=== PATIENT | male | born 1980 | race Caucasian/White ===

== ENCOUNTER 2018-04-01 02:04 | Emergency (ER) | payer SELFPAY ==
--- NOTE | 2018-04-01 02:42 | ER ---
Nurse's Notes [facility] Name: Stepan Bowman Age: 37 yrs Sex: Male : 1980 Arrival Date: 04/01/2018 Time: 02:08 Bed 20 Private MD: Diagnosis: Abrasion of foot;Cellulitis and acute lymphangitis of other parts of limb Presentation: 04/01 02:27 Presenting complaint: Patient states: "I think [place] may have [place] shellfish this morning.". Transition of care: patient was not received from another setting of care. Onset of symptoms was March 31, 2018. Risk Assessment: Do you want to hurt yourself or someone else? Patient reports no desire to harm self or others. Initial Sepsis Screen: Does the patient meet any 2 criteria? HR > 90 bpm. No. Patient's initial sepsis screen is negative. Does the patient have a suspected source of infection? No. Patient's initial sepsis screen is negative. Care prior to arrival: None. 02:27 Method Of Arrival: Ambulatory j 02:27 Acuity: TERENCE 4 jd3 Historical: - Allergies: 02:31 No Known Allergies; jd3 - Home Meds: 02:31 None [Active]; jd3 - PMHx: 02:31 endocarditis; jd3 - PSHx: 02:31 None; jd3 - Immunization history:: Adult Immunizations up to date. - Social history:: Smoking status: Patient uses tobacco products, smokes one pack cigarettes per day. Patient uses street drugs. - Ebola Screening: : Patient negative for fever greater than or equal to 101.5 degrees Fahrenheit, and additional compatible Ebola Virus Disease symptoms. - Family history:: not pertinent. Screenin:32 Abuse screen: Denies threats or abuse. Nutritional screening: No deficits noted. jd3 Tuberculosis screening: No symptoms or risk factors identified. Fall Risk Ambulatory Aid- None/Bed Rest/Nurse Assist (0 pts). Gait- Weak (10 pts.). Mental Status- Oriented to own ability (0 pts). Total Smalls Fall Scale indicates No Risk (0-24 pts). Assessment: 02:33 General: Appears in no apparent distress. uncomfortable, Behavior is calm, cooperative, jd3 appropriate for age. Pain: Complains of pain in right foot and left foot Quality of pain is described as stinging. Neuro: Level of Consciousness is awake, alert, obeys commands, Oriented to person, place, time, situation. Cardiovascular: Capillary refill < 3 seconds Patient's skin is warm and dry. Respiratory: Airway is patent Respiratory effort is even, unlabored, Respiratory pattern is regular, symmetrical. GI: No signs and/or symptoms were reported involving the gastrointestinal system. : No signs and/or symptoms were reported regarding the genitourinary system. EENT: No signs and/or symptoms were reported regarding the EENT system. Derm: Skin is intact, Skin is dry, Skin is normal, Skin temperature is warm Wound noted right foot and left foot Wound is blisters noted to the bottom of feet. Musculoskeletal: Circulation, motion, and sensation intact. Range of motion: intact in all extremities. Vital Signs: 02:31 BP 125 / 76; Pulse 113; Resp 16 S; Temp 98.9(O); Pulse Ox 100% on R/A; Weight 68.04 kg jd3 (R); Height 5 ft. 10 in. (177.80 cm) (R); Pain 8/10; 02:31 Body Mass Index 21.52 (68.04 kg, 177.80 cm) jd3 ED Course: 02:08 Patient arrived in ED. es 02:27 Gavin Gardner, RN is Primary Nurse. jd3 02:29 Triage completed. jd3 02:30 Petar Irene MD is Attending Physician. dayanna 02:32 Arm band placed on. jd3 02:33 Patient has correct armband on for positive identification. Bed in low position. Call jd3 light in reach. Side rails up X 1. 03:06 No provider procedures requiring assistance completed. Patient did not have IV access lp1 during this emergency room visit. Administered Medications: 02:48 Drug: Doxycycline 200 mg Route: PO; jd3 03:06 Follow up: Response: No adverse reaction; Medication administered at discharge. lp1 02:48 Drug: Bactroban Ointment 2 % 1 application Route: Topical; Site: affected area; jd3 Outcome: 02:42 Discharge ordered by . dayanna 03:06 Discharged to home ambulatory. lp1 03:06 Condition: good 03:06 Discharge instructions given to patient, Instructed on discharge instructions, follow up and referral plans. medication usage, Demonstrated understanding of instructions, follow-up care, medications, Prescriptions given X 3. 03:09 Patient left the ED. lp1 Signatures: Petar Irene MD MD cha Salyer, Edna es Pena, Laura, RN RN lp1 Gavin Gardner RN RN jd3
--- NOTE | 2018-04-01 02:42 | EDPHYS ---
Physician Documentation [facility] Name: Stepan Bowman Age: 37 yrs Sex: Male : 1980 Arrival Date: 04/01/2018 Time: 02:08 Bed 20 Private MD: ED Physician Petar Irene HPI: 04/01 02:39 This 37 yrs old Male presents to ER via Ambulatory with complaints of FEET dayanna INFECTION. 02:39 The patient presents with pain, swelling, tenderness. The complaints affect the right dayanna foot and left foot. Context: The problem was sustained at home, at work, resulted from. Onset: The symptoms/episode began/occurred 3 day(s) ago. Modifying factors: The symptoms are alleviated by nothing. Associated signs and symptoms: The patient has no apparent associated signs or symptoms. Severity of symptoms: At their worst the symptoms were mild, moderate, in the emergency department the symptoms are unchanged. The patient has not experienced similar symptoms in the past. Historical: - Allergies: 02:31 No Known Allergies; jd3 - Home Meds: 02:31 None [Active]; jd3 - PMHx: 02: endocarditis; jd3 - PSHx: 02:31 None; jd3 - Immunization history:: Adult Immunizations up to date. - Social history:: Smoking status: Patient uses tobacco products, smokes one pack cigarettes per day. Patient uses street drugs. - Ebola Screening: : Patient negative for fever greater than or equal to 101.5 degrees Fahrenheit, and additional compatible Ebola Virus Disease symptoms. - Family history:: not pertinent. ROS: 02:39 Constitutional: Negative for fever, chills, and weight loss, Eyes: Negative for injury, dayanna pain, redness, and discharge, ENT: Negative for injury, pain, and discharge, Neck: Negative for injury, pain, and swelling, Cardiovascular: Negative for chest pain, palpitations, and edema, Respiratory: Negative for shortness of breath, cough, wheezing, and pleuritic chest pain, Abdomen/GI: Negative for abdominal pain, nausea, vomiting, diarrhea, and constipation, Back: Negative for injury and pain, : Negative for injury, bleeding, discharge, and swelling, Neuro: Negative for headache, weakness, numbness, tingling, and seizure, Psych: Negative for depression, anxiety, suicide ideation, homicidal ideation, and hallucinations, Allergy/Immunology: Negative for hives, rash, and allergies, Endocrine: Negative for neck swelling, polydipsia, polyuria, polyphagia, and marked weight changes, Hematologic/Lymphatic: Negative for swollen nodes, abnormal bleeding, and unusual bruising. 02:39 MS/extremity: Positive for pain, swelling, tenderness. Exam: 02:39 Constitutional: This is a well developed, well nourished patient who is awake, alert, dayanna and in no acute distress. Head/Face: Normocephalic, atraumatic. Eyes: Pupils equal round and reactive to light, extra-ocular motions intact. Lids and lashes normal. Conjunctiva and sclera are non-icteric and not injected. Cornea within normal limits. Periorbital areas with no swelling, redness, or edema. ENT: Nares patent. No nasal discharge, no septal abnormalities noted. Tympanic membranes are normal and external auditory canals are clear. Oropharynx with no redness, swelling, or masses, exudates, or evidence of obstruction, uvula midline. Mucous membranes moist. Neck: Trachea midline, no thyromegaly or masses palpated, and no cervical lymphadenopathy. Supple, full range of motion without nuchal rigidity, or vertebral point tenderness. No Meningismus. Chest/axilla: Normal chest wall appearance and motion. Nontender with no deformity. No lesions are appreciated. Cardiovascular: Regular rate and rhythm with a normal S1 and S2. No gallops, murmurs, or rubs. Normal PMI, no JVD. No pulse deficits. Respiratory: Lungs have equal breath sounds bilaterally, clear to auscultation and percussion. No rales, rhonchi or wheezes noted. No increased work of breathing, no retractions or nasal flaring. Abdomen/GI: Soft, non-tender, with normal bowel sounds. No distension or tympany. No guarding or rebound. No evidence of tenderness throughout. Back: No spinal tenderness. No costovertebral tenderness. Full range of motion. Male : Normal genitalia with no discharge or lesions. MS/ Extremity: Pulses equal, no cyanosis. Neurovascular intact. Full, normal range of motion. Neuro: Awake and alert, GCS 15, oriented to person, place, time, and situation. Cranial nerves II-XII grossly intact. Motor strength 5/5 in all extremities. Sensory grossly intact. Cerebellar exam normal. Normal gait. Psych: Awake, alert, with orientation to person, place and time. Behavior, mood, and affect are within normal limits. 02:39 Skin: cellulitis, that is mild, injury, abrasion(s), small abrasion noted, moderate sized abrasion noted. Vital Signs: 02:31 BP 125 / 76; Pulse 113; Resp 16 S; Temp 98.9(O); Pulse Ox 100% on R/A; Weight 68.04 kg jd3 (R); Height 5 ft. 10 in. (177.80 cm) (R); Pain 8/10; 02:31 Body Mass Index 21.52 (68.04 kg, 177.80 cm) jd3 MDM: 02:31 Patient medically screened. [facility] 02:39 Data reviewed: vital signs, nurses notes. [facility] 04/01 02:38 Order name: Diet Regular; Complete Time: 02:39 [facility] Administered Medications: 02:48 Drug: Doxycycline 200 mg Route: PO; jd3 03:06 Follow up: Response: No adverse reaction; Medication administered at discharge. lp1 02:48 Drug: Bactroban Ointment 2 % 1 application Route: Topical; Site: affected area; jd3 Disposition: 04/01/18 02:42 Discharged to Home. Impression: Abrasion of foot, Cellulitis and acute lymphangitis of other parts of limb. - Condition is Stable. - Discharge Instructions: Cellulitis, Adult, [id number]. - Prescriptions for Bactroban 2 % Topical Ointment - Apply to affected area 1 application by TOPICAL route every 12 hours; 30 gram. Benadryl 25 mg Oral Capsule - take 1 capsule by ORAL route every 6 hours As needed; 30 tablet. Doxycycline Hyclate 100 mg Oral Tablet - take 1 tablet by ORAL route every 12 hours; 20 tablet. - Medication Reconciliation Form, Thank You Letter, Antibiotic Education, Prescription Opioid Use form. - Follow up: Private Physician; When: 2 - 3 days; Reason: Recheck today's complaints, Continuance of care, Re-evaluation by your physician. - Problem is new. - Symptoms have improved. Signatures: Petar Irene MD MD cha Pena, Laura, RN RN lp1 Gavin Gardner RN RN jd3 Corrections: (The following items were deleted from the chart) 03:09 02:42 04/01/2018 02:42 Discharged to Home. Impression: Abrasion of foot; Cellulitis and lp1 acute lymphangitis of other parts of limb. Condition is Stable. Forms are Medication Reconciliation Form, Thank You Letter, Antibiotic Education, Prescription Opioid Use. Follow up: Private Physician; When: 2 - 3 days; Reason: Recheck today's complaints, Continuance of care, Re-evaluation by your physician. Problem is new. Symptoms have improved. dayanna
[2018-04-01] MEDS ORDERED: DOXYCYCLINE 100 MG CAP PO ONE (02:49)
[2018-04-01] MEDS ORDERED: MUPIROCIN 2% OINT 22GM TUBE TOP ONE (02:49)
== END 2018-04-01 03:09 | disposition home or self-care (01) ==
LOC: ER 02:04
DX: L03.116 Cellulitis of left lower limb (principal); L03.115 Cellulitis of right lower limb; L03.126 Acute lymphangitis of left lower limb; L03.125 Acute lymphangitis of right lower limb; F17.210 Nicotine dependence, cigarettes, uncomplicated
CPT/HCPCS: 99283